=== PATIENT | female | born 1940 | race Caucasian/White ===

== ENCOUNTER 2016-09-21 13:10 | Emergency (ER) | payer MEDICARE, BC ==
[~2016-09-21] VITALS: Ht 162.6 cm; Wt 78.0 kg
[2016-09-21 13:17] VITALS: BP 121/58; PULSE 65; RESP 15; TEMP 98.2; O2SAT 97
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
--- NOTE | 2016-09-21 16:16 | RADRPT ---
EXAM DATE/TIME: 09/21/2016 16:02 [facility] COMPARISON: No previous studies available for comparison. INDICATIONS : Left knee pain. MEDICAL HISTORY : None. SURGICAL HISTORY : None. ENCOUNTER: Initial ACUITY: 2 days PAIN SCORE: 8/10 LOCATION: medial side of left knee. FINDINGS: There is chondrocalcinosis in the medaial and lateral tibiofemoral compartments. Joint space narrowi ng is present medially with marginal osteophyte formation. A suprapatellar joint effusion is present. There is no evidence of acute fracture. Bony mineralization is normal. CONCLUSION: 1. Osteoarthritis and joint effusion. Andre Vazquez MD on September 21, 2016 at 16:11 Board Certified Radiologist. This report was verified electronically.
[2016-09-21] MEDS ORDERED: DICL75TA PO (16:31)
== END 2016-09-21 17:09 | disposition home or self-care (01) ==
LOC: NEPE 13:10
DX: S80.02XA Contusion of left knee, initial encounter (principal); Z86.79 Personal history of other diseases of the circulatory system; Z85.72 Personal history of non-Hodgkin lymphomas; Z87.09 Personal history of other diseases of the respiratory system; W22.8XXA Striking against or struck by other objects, initial encounter
CPT/HCPCS: 73564; 99283; L1830